=== PATIENT | female | born 1935 | race Caucasian/White ===

== ENCOUNTER → 2017-06-29 | Outpatient (CLI) | payer MEDICARE, BC ==
[~2017-06-29] MED LIST: ACY200 PO; ACYC-50 PO; ASPI-1471 PO; ASPI-757 PO; CA C1TAB85 PO; CITA-137 PO; CLO75 PO; CLOB15CR22 TP; CLOP75TA PO; CYA1000 PO; FERR325T24 PO; FURO-45 PO; GAB300 PO; HYDR-385 PO; KET10 PO; LATOD OU; LEVO50TA80 PO; LEVO50TA86 PO; MET50 PO; METO25TA93 PO; MUPI15CR10 TP; NIA500 PO; NOR5/325 PO; OMEP-125 PO; PANT40TA65 PO; PER PO; PNEU0.5D3 IM; SIM10 PO; SIMV-54 PO; SULF-198 PO; TRA50 PO; TRI05T TP; WAR2 PO; [UNRECOGNIZED DRUG - CODE] PO
[2017-06-29 09:59] LABS: PLATELET COUNT, AUTOMATED 263 K/uL (150-450)
== END ==
LOC: LAB 09:48
PROVIDERS: ATTEND Emergency Medicine
DX: I10 Essential (primary) hypertension (principal)
CPT/HCPCS: 36415; 82040; 82247; 82310; 82374; 82435; 82465; 82565; 82947; 83718; 84075; 84132; 84155; 84295; 84443; 84450; 84460; 84478; 84520; 85025

== ENCOUNTER → 2017-12-02 | Outpatient (CLI) | payer MEDICARE, BC ==
[~2017-12-02] MED LIST changes: +DIPH0.5D12 IM
[2017-12-02 09:30] LABS: PLATELET COUNT, AUTOMATED 283 K/uL (150-450)
== END ==
LOC: LAB 09:01
PROVIDERS: ATTEND Internal Medicine Cardiovascular Disease
DX: I70.213 Atherosclerosis of native arteries of extremities with intermittent claudication, bilateral legs (principal); I65.23 Occlusion and stenosis of bilateral carotid arteries; E78.00 Pure hypercholesterolemia, unspecified
CPT/HCPCS: 36415; 82040; 82247; 82310; 82374; 82435; 82465; 82565; 82947; 83718; 84075; 84132; 84155; 84295; 84443; 84450; 84460; 84478; 84520; 85025

== ENCOUNTER → 2018-03-05 | Outpatient (CLI) | payer MEDICARE, BC | LOC: LAB 10:10 | PROVIDERS: ATTEND Emergency Medicine | DX: G62.9 Polyneuropathy, unspecified (principal); M79.10 Myalgia, unspecified site | CPT/HCPCS: 36415; 82306; 82550; 82607 ==

== ENCOUNTER → 2018-07-21 | Outpatient (CLI) | payer MEDICARE, BC ==
--- NOTE | 2018-07-21 12:13 | RADIOLOGY IMAGING REPORT ---
[facility] PATIENT NAME: Bella Khoury : 1935 MR: [id number] V: [id number] EXAM DATE: ORDERING PHYSICIAN: GORGE OSORIO TECHNOLOGIST: Location: [facility] Patient: Bella Khoury : 1935 Visit/Account:[id number] Date of Sevice: 07/21/2018 2 VIEWS CHEST INDICATION: Smoking COMPARISON: None available FINDINGS: Heart size within normal limits. Lungs are mildly hyperinflated without current failure, consolidation, effusion or pneumothorax. Dex troscoliosis is seen of the spine without acute bony finding. Atherosclerotic calcifications are see n of the aorta. IMPRESSION: 1. Mild pulmonary hyperinflation without acute finding. 2. Dextroscoliosis with mild spondylotic changes visualized in the thoracolumbar/upper lumbar spine. No evidence of acute bony finding. Report Dictated By: Ned Weber MD at 07/21/2018 12:07 PM Report E-Signed By: Ned Weber MD at 07/21/2018 12:08 PM WSN:[id number]
== END ==
LOC: RAD 10:44
PROVIDERS: ATTEND Emergency Medicine
DX: M47.895 Other spondylosis, thoracolumbar region (principal); M47.896 Other spondylosis, lumbar region; R91.8 Other nonspecific abnormal finding of lung field
CPT/HCPCS: 71046

== ENCOUNTER → 2018-08-20 | Outpatient (CLI) | payer MEDICARE, BC | LOC: LAB 10:12 | PROVIDERS: ATTEND Internal Medicine Cardiovascular Disease | DX: I70.213 Atherosclerosis of native arteries of extremities with intermittent claudication, bilateral legs (principal); E78.00 Pure hypercholesterolemia, unspecified | CPT/HCPCS: 36415; 82310; 82374; 82435; 82465; 82565; 82947; 83718; 84132; 84295; 84478; 84520 ==

== ENCOUNTER 2018-08-23 10:30 | Outpatient (RCR) | payer MEDICARE, BC ==
--- NOTE | 2018-07-20 19:10 | PT INITIAL EVALUATION ---
MEDICAL DIAGNOSIS: intervertebral disc degeneration, lumbar region TREATMENT DIAGNOSIS: same DATE OF ONSET: 02/09/18 SUBJECTIVE: Bella Khoury presents to physical therapy with complaints of low back pain that started in January 2018. She reports that she has had two Cortizone injections in May 2018. She states that following the injections the pain went from a sharp pain in low back region and in B shins to a constant burning pain in the same areas. She reports that the pain has prevented her from walking around the block or shopping. She also reports that the pain is worse in the morning and gets better as the day progresses. She states that it is worse with sitting, standing, and walking. She states that she feels like her posture has become worse and feels like she is leaning to one side. She reports that she sleeps well and the pain does not bother her. She reports that she had some imaging and denies any accidents or falls or night pain or unexplained weight loss. Pain location is L4-5 regions and in B shins and described as burning. Pain scale is 3 on a ten point pain scale. REHAB PROBLEM LIST: Increased Pain Decreased ROM Decreased Strength Decreased Endurance Decreased Balance Decreased Function Decreased ADL's Decreased Mobility Decreased Gait PREVIOUS MEDICAL HISTORY: See EMR OCCUPATION: Retired OBJECTIVE: Posture: She demonstrates potential R lateral shift that might be relevant, which we will see in future visits; otherwise she demonstrates increased B rounded shoulders, increased thoracic kyphosis, and decreased lumbar lordosis. ROM: Trunk AROM: flexion: moderate restriction with muscular end feel. extension: moderate restriction with muscular end feel. R sidegliding: moderate restriction with painful end feel. L sidegliding: NIL with muscular end feel. Palpation: TTP: facet and spinous process of L4-5 regions Special Tests: Repeated R sidegliding and correction of shift resulted in increased upright posture and decreased shift with reduced B carpenter pain and increased LBP Mobility: Independent Gait: She demonstrated decreased B step lengths, normal B feet clearance, trunk lean, stooped posture, decreased velocity, and no LOBs. Balance: Will test in the future ASSESSMENT: Bella will benefit from skilled physical therapy addressing the listed impairments to improve function and QOL. Short Term Goals 2 weeks: Pt will demonstrate directional preference to improve function and QOL. 4 weeks: If pt has directional preference, she will demonstrate abolished low back pain to improve function and QOL. 6 weeks: Pt will be independent on home exercise program, abolished LBP, and return to prior level of function. Patient's Goals Reduce low back pain, improve posture, stop from leaning to one side PLAN: Patient to be seen for Manual Therapy/STM/MET Strengthening/condition Ice/Heat Range of Motion Spinal Stabilization Ultrasound Work Hardening/Cond Stretching Iontophoresis Neuromuscular Re-ed Closed Chain Program Electrical Stim Posture/Body mechanics Gait Trg/Balance Trg Home Exercise Program Therapeutic Activities 2x/Week for 6 Weeks If you have any questions, comments, or concerns about this report or plan, please contact me at . Thank you, Nikita Kohler, PT, DPT MTDD
--- NOTE | 2018-08-24 08:07 | PT PLAN OF CARE ---
Physician: Omid Tobin MD Patient is being seen: 2x/week Therapist: Nikita Kohler, PT, DPT Medical Diagnosis: intervertebral disc degeneration, lumbar region Treatment Diagnosis: same Date of Onset: 02/09/18 Date of Initial Evaluation: 07/19/18 Date patient was last seen: 08/23/18 Number of treatments: 9 Number of cancellations/No shows: 0 INTERVENTIONS: Manual Therapy/STM/MET Strengthening/condition Ice/Heat Range of Motion Spinal Stabilization Ultrasound Work Hardening/Cond Stretching Iontophoresis Neuromuscular Re-ed Closed Chain Program Electrical Stim Posture/Body mechanics Gait Trg/Balance Trg Home Exercise Program Therapeutic Activities GOALS: 2 weeks: Pt will demonstrate directional preference to improve function and QOL. 4 weeks: If pt has directional preference, she will demonstrate abolished low back pain to improve function and QOL. 6 weeks: Pt will be independent on home exercise program, abolished LBP, and return to prior level of function. PATIENT'S GOAL: Reduce low back pain, improve posture, stop from leaning to one side Status of Patient's Goals: Progressed well Patient Compliance: Good Prognosis: Good Reasons for continuing therapy: This is a discharge note for Bella Khoury. She reports that she is feeling better. He reports that she feels like she is more upright. She reports that she feels like she is ambulating better and can go a further distance prior to resting. He denies any pain. She states that she has intermittent burning in her B LE's around the lower legs into the foot and ankles that is random on when it gets better and worse. She demonstrates a dysfunction type presentation with her shift that she continues to be independent on improving and that has shown signs of improvement. She also is independent with her home exercise program addressing balance and strength along with ways to improve posture. She has demonstrated improvements with core and B LE strength and will continue to progress with her home exercise program. She is independent on her home exercise program. As a result, she will be discharged from PT to [facility]. Posture: She demonstrates potential R lateral shift that is relevant. ROM: Trunk AROM: flexion: minimal restriction with muscular end feel. extension: minimal restriction with muscular end feel. R sidegliding: moderate restriction with painful end feel. L sidegliding: NIL with muscular end feel. Strength: Palpation: TTP: facet and spinous process of L4-5 regions Special Tests: Repeated R sidegliding and correction of shift resulted in increased upright posture and decreased shift with reduced B carpenter pain and increased LBP Mobility: Independent If you have any questions, please contact me at [phone]. Thank you, Nikita Kohler, PT, DPT BORIS
== END 2018-08-23 18:00 | disposition home or self-care (01) ==
LOC: PT 10:30
PROVIDERS: ATTEND Orthopaedic Surgery Orthopaedic Surgery of the Spine
DX: M51.36 Other intervertebral disc degeneration, lumbar region (principal)
CPT/HCPCS: 97162

== ENCOUNTER → 2018-09-02 | Outpatient (CLI) | payer MEDICARE, BC ==
--- NOTE | 2018-09-02 15:53 | RADIOLOGY IMAGING REPORT ---
FACILITY: [facility] PATIENT NAME: Bella Khoury : 1935 MR: [id number] V: [id number] EXAM DATE: ORDERING PHYSICIAN: TASH OROSCO TECHNOLOGIST: Location: [facility] [place] Patient: Bella Khoury : 1935 Visit/Account:[id number] Date of Sevice: 09/02/2018 Bilateral lower extremity arterial Doppler duplex ultrasound scan. HISTORY: Atherosclerosis. COMPARISON: CT angiogram of 11/19/2011. An arterial Doppler duplex ultrasound scan with spectral analysis was performed on the lower extremit ies. PEAK SYSTOLIC ARTERIAL VELOCITIES: Right common femoral artery: 248 cm/s. Right profunda femoris artery: 198 cm/s. Right superficial femoral artery: 139 cm/s. Right popliteal artery: 34 cm/s. Right dorsalis pedis artery: 44 cm/s. Right posterior tibial artery: 36 cm/s. Left common femoral artery: 221 cm/s. Left profunda femoris artery: 183 cm/s. Left superficial femoral artery: 67 cm/s. Left popliteal artery: 37 cm/s. Left dorsalis pedis artery: 27 cm/s. Left posterior tibial artery: 67 cm/s. Calcified plaques are scattered in the arterial systems of both lower extremities. Triphasic arteria l waveforms are dampened diffusely in both lower extremities. The study does not include segmental limb pressures. 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 Moderate occlusive arterial disease involving the right superficial femoral artery. Mild to moderate diffuse occlusive arterial disease elsewhere in the thighs and calves bilaterally. COMMENT: Note that this study does not include segmental limb pressures which significantly decreases the sens itivity of the examination for detection of occlusive arterial disease. Report Dictated By: Thompson Houston MD at 09/02/2018 3:40 PM Report E-Signed By: Thompson Houston MD at 09/02/2018 3:49 PM WSN:[id number]
== END ==
LOC: US 00:51
PROVIDERS: ATTEND Internal Medicine Cardiovascular Disease
DX: I73.9 Peripheral vascular disease, unspecified (principal); I70.213 Atherosclerosis of native arteries of extremities with intermittent claudication, bilateral legs
CPT/HCPCS: 93925